=== PATIENT | male | born 1965 | race Caucasian/White ===

== ENCOUNTER 2019-03-23 04:52 | Day surgery (SDC) | payer BC ==
[~2019-03-23] VITALS: Ht 172.7 cm; Wt 173.0 kg
[2019-03-23] VITALS (7 sets, daily range): BP systolic 117–135; BP diastolic 76–91
[2019-03-23] MEDS ORDERED: ceFAZolin 1GM/D5W- ADD-VANTAGE 50 ML IV ONE (05:55)
--- NOTE | 2019-03-23 06:05 | NUR ---
Patient in room [facility]. I have received report from KALA Lin and had the opportunity to ask questions and assume patient care.
--- NOTE | 2019-03-23 06:14 | NUR ---
Problems reprioritized. Patient report given, questions answered & plan of care reviewed with Penelope Narayanan. Addendum: 03/23/19 at 0615 by Delia Pichardo RN Amended: Links added.
--- NOTE | 2019-03-23 06:44 | NUR ---
Problems reprioritized. Patient report given, questions answered & plan of care reviewed with Penelope Narayanan. Addendum: 03/23/19 at 0645 by Delia Pichardo RN Amended: Links added.
[2019-03-23 07:33] LABS: BASOPHILS % (AUTO) 0.2 % (0-1); EOSINOPHILS # (AUTO) 0.1 X10'3 (0-0.9); EOSINOPHILS % (AUTO) 1.5 % (0-6); HEMATOCRIT 40.2 % (42.0-52.0); HEMOGLOBIN 14.1 g/dl (14.0-17.9); LYMPHOCYTES # (AUTO) 1.1 X10'3 (1.1-4.8); LYMPHOCYTES % (AUTO) 15.6 % (21-51); MEAN CORPUSCULAR VOLUME 88.4 FL (78-98); MEAN PLATELET VOLUME 8.7 FL (7.4-10.4); MONOCYTES # (AUTO) 0.8 X10'3 (0-0.9); MONOCYTES % (AUTO) 11.2 % (2-12); NEUTROPHILS # (AUTO) 5.2 X10'3 (1.8-7.7); NEUTROPHILS % (AUTO) 71.5 % (42-75); PLATELET COUNT 159 X10'3 (140-440); RED BLOOD COUNT 4.54 X10'6 (4.70-6.10); RED CELL DISTRIBUTION WIDTH 13.1 % (11.5-14.5); WHITE BLOOD COUNT 7.3 X10'3 (4.5-11.0)
[2019-03-23] MEDS ORDERED: iohexol 300 MG/1 ML 50ml polymer ONE (07:39)
[2019-03-23 07:46] LABS: ALBUMIN 4.1 G/DL (3.4-5.0); ANION GAP 12 (8-16); BLOOD UREA NITROGEN 20 MG/DL (7-18); BUN/CREATININE RATIO 11.9 (5.4-32.0); CALCIUM 8.7 MG/DL (8.5-10.1); CHLORIDE 103 MMOL/L (99-107); CREATININE 1.68 MG/DL (0.60-1.10); GLUCOSE 105 MG/DL (70-104); POTASSIUM 4.2 MMOL/L (3.5-5.1); SODIUM 140 MMOL/L (135-145); TOTAL CARBON DIOXIDE 25.4 MMOL/L (24-32); eGFR 43 ML/MIN
--- NOTE | 2019-03-23 09:00 | NUR ---
Report called to [employer]
--- NOTE | 2019-03-23 09:30 | NUR ---
Pt off the floor to OR
[2019-03-23] MEDS ORDERED: ringers solution, lacted 1,000 ML IV SCH (09:42)
[2019-03-23] MEDS ORDERED: ondansetron/PF 4mg/2ml inj IV PRN (09:45)
[2019-03-23] MEDS ORDERED: morphine 4 MG/ML inj SYRINge IV PRN ×2 (09:45)
[2019-03-23] MEDS ORDERED: meperidine/PF 25mg/ml syringe IV PRN ×3 (09:45)
[2019-03-23] MEDS ORDERED: proCHLORperazine 10 MG/2 ml inj IV PRN (09:45)
[2019-03-23] MEDS ORDERED: fentaNYL /PF 50mcg/ml 5ml ampule ONE (09:58)
[2019-03-23] MEDS ORDERED: midazolam 2 mg/2 ml injection ONE (09:58)
[2019-03-23] MEDS ORDERED: sevoflurane 250ml liquid IH ONE (10:04)
[2019-03-23] MEDS ORDERED: sugammadex 200mg/2ml injection IV ONE (10:24)
[2019-03-23] MEDS ORDERED: rocuronium 10mg/ml inj IV ONE (10:40)
[2019-03-23] MEDS ORDERED: ondansetron/PF 4mg/2ml inj ONE (10:40)
[2019-03-23] MEDS ORDERED: dexamethasone sod phosphate 4mg/ml inj. ONE (10:40)
[2019-03-23] MEDS ORDERED: LIDOcaine 2% (20mg/ml) 5ml vial ONE (10:40)
[2019-03-23] MEDS ORDERED: propofol inj 20 ML IV ONE (10:40)
[2019-03-23] MEDS ORDERED: ketorolac trometh. 30mg/ml inj. ONE (11:06)
--- NOTE | 2019-03-23 11:19 | NUR ---
ARRIVED IN PACU VIA BED FROM OR WITH DR RODRIGUEZ IN ATTENDANCE. VS STABLE. NO C/O PAIN
[2019-03-23] MEDS ORDERED: CEPH-572 PO (11:23)
[2019-03-23] MEDS ORDERED: FLO0.4C PO (11:25)
--- NOTE | 2019-03-23 11:49 | NUR ---
COMFORTABLE. VS STABLE
--- NOTE | 2019-03-23 11:50 | NUR ---
Report received from [employer]
--- NOTE | 2019-03-23 11:59 | NUR ---
PT TO ROOM 345B VIA BED. AWAKE AND COMFORTABLE ON ARRIVAL. YOSI NOTIFIED OF PTS ARRIVAL
--- NOTE | 2019-03-23 12:05 | NUR ---
Pt returned from PACU
--- NOTE | 2019-03-23 14:20 | NUR ---
DC inst provided to pt. IV DC'd, tip intact. All belongings sent w/pt. Pt ambulated to front lobby.
== END 2019-03-23 14:20 | disposition home or self-care (01) ==
LOC: PACU OUT 04:52 → SUR 3N 06:03 → PACU OUT 14:20
PROVIDERS: ATTEND Urology
DX: N13.2 Hydronephrosis with renal and ureteral calculous obstruction (principal); Z79.899 Other long term (current) drug therapy
CPT/HCPCS: 36415; 52356; 74420; 76000; 80048; 85025; 87081; 93005; C1758; C1769; C2617; C9399; J0690; J1100; J1885; J2001; J2250; J2405; J2704; J3010; J7030; J7120; Q9967; A4338; A4618; A7000; G0378